=== PATIENT | male | born 1965 | race Caucasian/White ===

== ENCOUNTER 2021-04-18 17:21 | Inpatient (IN) | payer OTHER ==
[~2021-04-18] VITALS: Ht 185.4 cm; Wt 89.4 kg
[2021-04-18 18:51] LABS: HEMOGLOBIN 15.8 gm/dl (14.0-17.5); RED BLOOD COUNT 5.31 M/UL (4.20-5.50); WHITE BLOOD COUNT 11.1 K/UL (4.5-11.0)
[2021-04-18 19:16] LABS: BUN/CREATININE RATIO 8 (0-10)
[2021-04-21 06:53] LABS: HEMOGLOBIN 13.9 gm/dl (14.0-17.5); WHITE BLOOD COUNT 11.8 K/UL (4.5-11.0)
[2021-04-21 06:58] LABS: RED BLOOD COUNT 4.73 M/UL (4.20-5.50)
[2021-04-21 07:25] LABS: BUN/CREATININE RATIO 11 (0-10)
--- NOTE | 2021-04-22 04:24 | NUR ---
APPROXIMATELY 0150 AM DURING WALKING ROUND, PATIENT WAS FOUND ON FLOOR.PATIENT HAD HEAD TOWARD FOOT OF BED AND FEET TOWARD HEAD OF BED LAYING ON LEFT SIDE. COMPLETE PHYSICAL ASSESSMENT PERFORMED. ALL EXTREMITIES EQUAL WITH NORMAL ROM FOR PATIENT. NO APPARENT INJURY NOTED. PATIENT STATES" IM NOT HURT I JUST THOUGHT I COULD DO IT". CALL PLACED TO DR HUFFMAN, NO NEW ORDERS NOTED. PATIENT ASSISTED BACK TO BED BY 2 STAFF. PATIENT GIVEN BED BATH, NO EXTERNAL INJURIES R/T FALL NOTED. BED ALARMS ENGAGED. STRIP ALARM AND ALARM ON BED ACTIVATED.
[2021-04-22 06:27] LABS: RED BLOOD COUNT 5.02 M/UL (4.20-5.50); WHITE BLOOD COUNT 11.7 K/UL (4.5-11.0)
[2021-04-22 06:52] LABS: BUN/CREATININE RATIO 11 (0-10)
[2021-04-24 07:43] LABS: HEMOGLOBIN 14.9 gm/dl (14.0-17.5); RED BLOOD COUNT 5.17 M/UL (4.20-5.50); WHITE BLOOD COUNT 9.1 K/UL (4.5-11.0)
[2021-04-24 07:58] LABS: BUN/CREATININE RATIO 13 (0-10)
--- NOTE | 2021-04-25 00:45 | NUR ---
APPROX. 2119: ATTEMPTED TO CALL [facility] FOR UPDATE ON PT'S PCU BED. NO ANSWER AT THIS TIME. APPROX. 2144: NOTIFIED [facility] OF NEED FOR PCU BED FOR PT. APPROX. 2337: [facility] STATED THAT PT WAS GOING TO BE GOING TO PCU, ROOM 6118, SOON THEY COULD GET THAT PT MOVED AND THE ROOM CLEANED. NOTIFIED HOUSE OF CURRENT PT SITUATION. HEART RATE SUSTAINING IN THE 110-115'S. [facility] STATED TO CALL AND CLARIFY IF HE STILL WANTED THE PT TO BE TRANSFERRED TO PCU OR TO STAY ON MEDSURG. APPROX. 2357: NOTIFIED [facility] THAT STILL WANTED PT TO BE TRANSFERRED TO PCU. APPROX. 0028: [facility] STATED THAT PT WAS GOING TO BE TRANSFERRED TO ROOM 6118 SOON THAT PT WAS MOVED DOWN AND THE ROOM WAS CLEANED.
[2021-04-25 01:06] LABS: BUN/CREATININE RATIO 16 (0-10)
--- NOTE | 2021-04-25 02:35 | NUR ---
APPROX. 0128: CALLED REPORT TO JO IN PCU. AWAITING ROOM TO BE CLEANED. APPROX. 0235: PT TRANSFERRED TO PCU, ROOM 6118, BY RN AND FRUIT SORTER. PT STABLE AT THE TIME OF TRANSFER.
[2021-04-26 03:10] LABS: HEMOGLOBIN 14.3 gm/dl (14.0-17.5); RED BLOOD COUNT 4.81 M/UL (4.20-5.50)
[2021-04-26 03:25] LABS: WHITE BLOOD COUNT 19.7 K/UL (4.5-11.0)
[2021-04-26 08:55] LABS: BUN/CREATININE RATIO 14 (0-10)
[2021-04-27 03:37] LABS: HEMOGLOBIN 13.7 gm/dl (14.0-17.5); RED BLOOD COUNT 4.62 M/UL (4.20-5.50)
[2021-04-27 03:46] LABS: WHITE BLOOD COUNT 11.9 K/UL (4.5-11.0)
[2021-04-27 04:18] LABS: BUN/CREATININE RATIO 7 (0-10)
[2021-04-28 02:46] LABS: HEMOGLOBIN 13.5 gm/dl (14.0-17.5); RED BLOOD COUNT 4.56 M/UL (4.20-5.50); WHITE BLOOD COUNT 11.5 K/UL (4.5-11.0)
[2021-04-28 03:29] LABS: BUN/CREATININE RATIO 12 (0-10)
[2021-04-29 03:47] LABS: HEMOGLOBIN 14.6 gm/dl (14.0-17.5); RED BLOOD COUNT 4.91 M/UL (4.20-5.50); WHITE BLOOD COUNT 13.1 K/UL (4.5-11.0)
[2021-04-29 04:26] LABS: BUN/CREATININE RATIO 11 (0-10)
[2021-05-01 07:09] LABS: HEMOGLOBIN 12.7 gm/dl (14.0-17.5); WHITE BLOOD COUNT 12.3 K/UL (4.5-11.0)
[2021-05-01 07:13] LABS: RED BLOOD COUNT 4.25 M/UL (4.20-5.50)
[2021-05-01 07:48] LABS: BUN/CREATININE RATIO 8 (0-10)
[2021-05-02 09:05] LABS: HEMOGLOBIN 12.9 gm/dl (14.0-17.5); RED BLOOD COUNT 4.41 M/UL (4.20-5.50); WHITE BLOOD COUNT 12.2 K/UL (4.5-11.0)
[2021-05-02 09:31] LABS: BUN/CREATININE RATIO 8 (0-10)
[2021-05-03 04:15] LABS: HEMOGLOBIN 14.3 gm/dl (14.0-17.5); RED BLOOD COUNT 4.83 M/UL (4.20-5.50); WHITE BLOOD COUNT 10.3 K/UL (4.5-11.0)
[2021-05-03 04:45] LABS: BUN/CREATININE RATIO 11 (0-10)
[2021-05-03] MEDS ORDERED: LOPRESSOR 25 MG25 MG PO (16:59)
[2021-05-03] MEDS ORDERED: ACETAMINOPHEN325 MG PO (16:59)
[2021-05-04 06:03] LABS: HEMOGLOBIN 14.2 gm/dl (14.0-17.5); RED BLOOD COUNT 4.77 M/UL (4.20-5.50); WHITE BLOOD COUNT 9.3 K/UL (4.5-11.0)
[2021-05-04 06:21] LABS: BUN/CREATININE RATIO 12 (0-10)
--- NOTE | 2021-05-04 13:20 | NUR ---
called report to cathleen aldana at 1321 at [facility].
--- NOTE | 2021-05-04 14:21 | NUR ---
CALLED BRENDA WITH [facility] TO SCHEDULE TRANSPORT AT APPROX 1355, AND FAXED PCS FORM WELL. CONFIRMATION NOTED TO CHART. PER PT REQUEST, NOTIFIED AUNT, PRIYA OF IMPENDING TRANSFER TO REHAB FACILITY. THANKED STAFF FOR CALLING AND FOR THE GREAT JOB WE HAVE DONE WITH HIS CARE SINCE ARRIVAL.
--- NOTE | 2021-05-04 15:34 | NUR ---
STILL AWAITING EMS ARRIVAL NO DISTRESS NOTED.
== END 2021-05-04 06:45 | DRG 194 ==
LOC: ER1 17:21 → CDU 04-20 18:20 → PROG CARE 04-20 18:20 → 3 EAST 04-20 18:20 → OB 04-20 20:33 → 3 EAST 04-20 20:36 → MED SURG 4 04-21 17:35 → PROG CARE 04-25 02:16 → MED SURG 4 05-03 20:01
PROVIDERS: Family Medicine; Internal Medicine; Physician Assistant; Physician Assistant Medical; ADMIT Internal Medicine
PROC: B24BZZZ Ultrasonography of Heart with Aorta (ICD-10-PCS; principal; 2021-04-24)
DX: J18.9 Pneumonia, unspecified organism (principal); N17.9 Acute kidney failure, unspecified; G35 Multiple sclerosis; Z20.822 Contact with and (suspected) exposure to COVID-19; R29.6 Repeated falls; F32.A Depression, unspecified; I49.1 Atrial premature depolarization; E86.0 Dehydration; L89.321 Pressure ulcer of left buttock, stage 1; L89.311 Pressure ulcer of right buttock, stage 1; D72.828 Other elevated white blood cell count; T36.1X5A Adverse effect of cephalosporins and other beta-lactam antibiotics, initial encounter; R53.81 Other malaise; R00.0 Tachycardia, unspecified; Z91.81 History of falling
CPT/HCPCS: ECHO; 36415; 70450; 71045; 71046; 80048; 80053; 80076; 81001; 82550; 82553; 82962; 83605; 83735; 83874; 84439; 84443; 84484; 85025; 85027; 85379; 87040; 93005; 93306; 93970; 96365; 96372; 96376; 97110-GP-CQ; 97116; 97161; 97164; 97166; 97530; 97530-GP-CQ; 99285; A6212; G0378; J0692; J0696; J1650; J2930; J7030; J7040; Q9967; U0002